=== PATIENT | female | born 1985 | race American Indian/Alaskan Native ===

== ENCOUNTER 2016-12-04 16:55 | Emergency (ER) | payer MEDICAID ==
[2016-12-04 17:11] VITALS: BMI 29.2
[2016-12-04 17:16] VITALS: RESP 18; TEMP 98; O2SAT 100
--- NOTE | 2016-12-04 17:49 | ED PDOC ---
Arrival/HPI - General Chief Complaint: Altered Mental Status Time Seen by Provider: 12/04/16 17:19 Historian: Patient - History of Present Illness Narrative History of Present Illness (Text): 12/04/16 17:43 31 year old female who denies past medical history presents to the emergency department with fatigue and intermittent nausea for the past few weeks. she says she feels sleepy more when she is at work. She denies any sleep disturbance. Patient reports LMP beginning of November. Denies fever, cough, diarrhea, dysuria, or other symptoms. Time/Duration: > week Symptom Onset: Gradual Symptom Course: Unchanged Associated Symptoms (Text): None Past Medical History - Provider Review Nursing Documentation Reviewed: Yes - Infectious Disease Hx of Infectious Diseases: None - Psychiatric Hx Substance Use: No Family/Social History - Physician Review Nursing Documentation Reviewed: Yes Family/Social History: Unknown Family HX Smoking Status: Never Smoked Hx Alcohol Use: No Hx Substance Use: No Allergies/Home Meds Allergies/Adverse Reactions: Allergies No Known Allergies Allergy (Verified 08/29/16 09:39) Review of Systems - Physician Review All systems were reviewed & negative as marked: Yes - Review of Systems Constitutional: Fatigue Gastrointestinal: Nausea Musculoskeletal: Arthralgias Physical Exam Vital Signs Reviewed: Yes Vital Signs Temp Pulse Resp BP Pulse Ox 12/04/16 18:39 64 18 121/71 100 12/04/16 17:15 98.0 F 62 18 119/70 100 Temperature: Afebrile Blood Pressure: Normal Pulse: Regular Respiratory Rate: Normal Appearance: Positive for: Well-Appearing, Non-Toxic, Comfortable Pain Distress: None Mental Status: Positive for: Alert and Oriented X 3 - Systems Exam Head: Present: Atraumatic, Normocephalic Pupils: Present: PERRL Extroacular Muscles: Present: EOMI Conjunctiva: Present: Normal Mouth: Present: Moist Mucous Membranes Neck: Present: Normal Range of Motion Respiratory/Chest: Present: Clear to Auscultation, Good Air Exchange. No: Respiratory Distress, Accessory Muscle Use Cardiovascular: Present: Regular Rate and Rhythm, Normal S1, S2. No: Murmurs Abdomen: Present: Normal Bowel Sounds. No: Tenderness, Distention, Peritoneal Signs Back: Present: Normal Inspection Upper Extremity: Present: Normal Inspection. No: Cyanosis, Edema Lower Extremity: Present: Normal Inspection. No: Edema Neurological: Present: GCS=15, CN II-XII Intact, Speech Normal, Motor Func Grossly Intact, Normal Sensory Function, Gait Normal Skin: Present: Warm, Dry. No: Rashes Psychiatric: Present: Alert, Oriented x 3 Medical Decision Making - Lab Interpretations Microbiology Results: Microbiology Results 12/04/16 17:45 Urine,Clean Catch Urine Culture - Final Gram Positive Cocci Lab Results: 12/04/16 18:08 12/04/16 18:08 Lab Results 12/04/16 18:08: Sodium 140, Potassium 4.2, Chloride 103, Carbon Dioxide 28, Anion Gap 13, BUN 11, Creatinine 0.7, Est GFR ( Amer) > 60, Est GFR (Non- Af Amer) > 60, Random Glucose 76, Calcium 9.6, Total Bilirubin 0.6, AST 33, ALT 34, Alkaline Phosphatase 78, Total Protein 7.8, Albumin 4.0, Globulin 3.8, Albumin/Globulin Ratio 1.1 12/04/16 18:08: WBC 5.4, RBC 4.86, Hgb 13.9, Hct 42.1, MCV 86.6, MCH 28.6, MCHC 33.0, RDW 13.5, Plt Count 245, MPV 11.0, Gran % 41.5 L, Lymph % (Auto) 45.6 H, [place] % (Auto) 9.1 H, Eos % (Auto) 3.4, Baso % (Auto) 0.4, Gran # 2.23, Lymph # 2.5, [place] # 0.5, Eos # 0.2, Baso # 0.02 12/04/16 17:45: Urine Color Yellow, Urine Appearance Clear, Urine pH 6.0, Ur Specific [place] >= 1.030, Urine Protein Negative, Urine Glucose (UA) Negative, Urine Ketones Negative, Urine Blood Negative, Urine Nitrate Negative, Urine Bilirubin Negative, Urine Urobilinogen 0.2, Ur Leukocyte Esterase Small H, Urine RBC Negative, Urine WBC 5 - 10, Ur Epithelial Cells 6 - 8, Urine Bacteria Few, Urine HCG, Qual Negative - Scribe Statement The provider has reviewed the documentation as recorded by the Jaziel Oh Provider Scribe Attestation: All medical record entries made by the Arisibbethany were at my direction and personally dictated by me. I have reviewed the chart and agree that the record accurately reflects my personal performance of the history, physical exam, medical decision making, and the department course for this patient. I have also personally directed, reviewed, and agree with the discharge instructions and disposition. Disposition/Present on Arrival - Present on Arrival Any Indicators Present on Arrival: No History of DVT/PE: No History of Uncontrolled Diabetes: No Urinary Catheter: No History of Decub. Ulcer: No History Surgical Site Infection Following: None - Disposition Have Diagnosis and Disposition been Completed?: Yes Diagnosis: Nausea, Fatigue Disposition: HOME/ ROUTINE Disposition Time: 19:22 Condition: STABLE Discharge Instructions (ExitCare): Diet for Ulcers and Gastritis (ED) Additional Instructions: Please follow up with your doctor on Wednesday. Return to the ER for any worsening symptoms or for any other concerns. Prescriptions: Famotidine [Pepcid] 20 mg PO DAILY #14 tab Ondansetron ODT [Zofran ODT] 4 mg PO Q4H PRN #10 odt PRN Reason: Nausea/Vomiting Referrals: Rosemary Tillman MD [Primary Care Provider] - Follow up with primary Forms: WORK NOTE
[2016-12-04 17:56] LABS: URINE BILIRUBIN NEGATIVE (NEGATIVE); URINE BLOOD NEGATIVE (NEGATIVE); URINE GLUCOSE (UA) NEGATIVE (NEGATIVE); URINE KETONE NEGATIVE (NEGATIVE); URINE LEUKOCYTE ESTERASE SMALL Leu/uL (NEGATIVE); URINE PROTEIN NEGATIVE mg/dL (<30 mg/dL); URINE UROBILINOGEN 0.2 E.U./dL (<1 E.U./dL)
[2016-12-04 18:05] LABS: URINE APPEARANCE CLEAR (CLEAR); URINE COLOR YELLOW (YELLOW)
[2016-12-04 18:15] LABS: ADD MANUAL DIFF? NO
[2016-12-04 18:18] LABS: URINE BACTERIA FEW (NEG); URINE RBC NEGATIVE /hpf (0-2)
[2016-12-04 18:23] LABS: BASO # 0.02 K/mm3 (0.0-2.0); BASO % 0.4 % (0.0-3.0); EOS # 0.2 (0.0-0.7); EOS % 3.4 % (1.5-5.0); GRAN # 2.23 (1.4-6.5); GRAN % 41.5 % (50.0-68.0); HEMATOCRIT 42.1 % (36.0-48.0); LYMPH # 2.5 (1.2-3.4); LYMPH % 45.6 % (22.0-35.0); MEAN CELL VOLUME 86.6 fL (80.0-105.0); MEAN CORPUSCULAR HEMOGLOBIN 28.6 pg (25.0-35.0); MONO # 0.5 (0.1-0.6); MONO % 9.1 % (1.0-6.0); PLATELET COUNT 245 10^3/uL (120.0-450.0); RED CELL DISTRIBUTION WIDTH 13.5 % (11.5-14.5); WHITE BLOOD COUNT 5.4 10^3/ul (4.5-11.0)
[2016-12-04 18:39] VITALS: BP 121/71; PULSE 64
[2016-12-04 18:54] LABS: ALB/GLOB RATIO 1.1 (1.1-1.8); ALKALINE PHOSPHATASE 78 U/L (38-133); ALT/SGPT 34 U/L (7-56); AST/SGOT 33 U/L (15-39); BILIRUBIN,TOTAL 0.6 mg/dL (0.2-1.3); BLOOD UREA NITROGEN 11 mg/dL (7-21); CALCIUM 9.6 mg/dL (8.4-10.5); CARBON DIOXIDE 28 mmol/L (21-33); CHLORIDE 103 mmol/L (98-107); GFR AFRICAN-AMERICAN > 60; GLUCOSE,RANDOM 76 mg/dL (70-110); POTASSIUM 4.2 mmol/L (3.6-5.0); SODIUM 140 mmol/L (132-148); TOTAL PROTEIN 7.8 g/dL (5.8-8.3)
== END 2016-12-04 19:22 | disposition home or self-care (01) ==
LOC: ED 16:55
DX: R53.83 Other fatigue (principal); R11.0 Nausea

== ENCOUNTER 2016-12-31 21:35 | Emergency (ER) | payer MEDICAID ==
[2016-12-31 21:59] VITALS: BMI 30.1
[2016-12-31 22:04] VITALS: BP 124/60; TEMP 98.4
--- NOTE | 2017-01-01 00:24 | ED PDOC ---
Arrival/HPI - General Chief Complaint: GI Problem Time Seen by Provider: 12/31/16 21:48 Historian: Patient - History of Present Illness Narrative History of Present Illness (Text): 01/01/17 00:20 31yr old female presents today requesting test. pt denies abdominal pain. no urinary symptoms. no vaginal bleeding. no vaginal discharge. pt states she thinks she may be because she missed her period in november. pt states she has been feeling very nauseous. no vomiting. no cp or sob. no other complaints. pt states she wouldnt have believed a home test so she came to the Er for confirmation. Symptom Onset: Gradual Symptom Course: Unchanged Past Medical History - Provider Review Nursing Documentation Reviewed: Yes - Travel History Have you recently traveled outside [place] w/in the past 3 mons?: No - Infectious Disease Hx of Infectious Diseases: None - Psychiatric Hx Substance Use: No Family/Social History - Physician Review Nursing Documentation Reviewed: Yes Family/Social History: Unknown Family HX Smoking Status: Never Smoked Hx Alcohol Use: No Hx Substance Use: No Allergies/Home Meds Allergies/Adverse Reactions: Allergies No Known Allergies Allergy (Verified 08/29/16 09:39) Review of Systems - Review of Systems Constitutional: absent: Fevers ENT: absent: Sore Throat, Sinus Congestion Respiratory: absent: SOB, Cough Cardiovascular: absent: Chest Pain, Palpitations Gastrointestinal: Nausea. absent: Abdominal Pain, Constipation, Diarrhea, Vomiting Genitourinary Female: absent: Dysuria, Frequency, Hematuria, Vaginal Bleeding, Vaginal Discharge Musculoskeletal: absent: Arthralgias, Back Pain, Neck Pain Skin: absent: Rash, Pruritis Neurological: absent: Headache, Dizziness Psychiatric: absent: Anxiety, Depression Physical Exam Vital Signs Reviewed: Yes Vital Signs Temp Pulse Resp BP Pulse Ox 12/31/16 21:59 98.4 F 73 18 124/60 98 Temperature: Afebrile Blood Pressure: Normal Pulse: Regular Respiratory Rate: Normal Appearance: Positive for: Well-Appearing, Non-Toxic, Comfortable Pain Distress: None Mental Status: Positive for: Alert and Oriented X 3 - Systems Exam Head: Present: Atraumatic Mouth: Present: Moist Mucous Membranes Neck: Present: Normal Range of Motion Respiratory/Chest: Present: Clear to Auscultation, Good Air Exchange. No: Respiratory Distress, Accessory Muscle Use Cardiovascular: Present: Regular Rate and Rhythm, Normal S1, S2. No: Murmurs Abdomen: No: Tenderness, Distention, Peritoneal Signs, Rebound, Guarding Upper Extremity: Present: Normal ROM Lower Extremity: Present: Normal ROM Neurological: Present: GCS=15 Skin: Present: Warm, Dry, Normal Color. No: Rashes Psychiatric: Present: Alert, Oriented x 3 Medical Decision Making ED Course and Treatment: 01/01/17 00:23 She was nontoxic well-appearing no distress with stable vital signs Urine test positive 2 Abdomen is soft nontender nondistended. I have advised follow-up with the combat systems operator [facility] within the next 2 days. I've advised her to vitamins. I've advised me to return if symptoms worsen or persist or if new concerning symptoms develop Patient verbalizes understanding of discharge instructions and need for immediate followup. Impression: Positive test Increase fluids vitamins daily Follow-up with combat systems [facility] [employer] within the next 2 days Return immediately if symptoms worsen or persist or if new concerning symptoms develop Disposition/Present on Arrival - Present on Arrival Any Indicators Present on Arrival: No History of DVT/PE: No History of Uncontrolled Diabetes: No Urinary Catheter: No History of Decub. Ulcer: No History Surgical Site Infection Following: None - Disposition Have Diagnosis and Disposition been Completed?: Yes Diagnosis: Positive test Disposition Time: 00:24 Patient Plan: Discharge Condition: GOOD Additional Instructions: Increase fluids vitamins daily Follow-up with [facility] systems [facility] [employer] within the next 2 days Return immediately if symptoms worsen or persist or if new concerning symptoms develop Prescriptions: Multivit/Folic Acid/I [ Plus] 1 tab PO DAILY #30 tab Referrals: Odessa Dickey MD [Staff Provider] - [facility] - Follow up with primary Forms: WORK NOTE
[2017-01-01 00:38] VITALS: RESP 16
[2017-01-01 01:44] VITALS: PULSE 88; O2SAT 98
== END 2017-01-01 01:44 | disposition home or self-care (01) ==
LOC: ED 21:35
DX: Z32.01 Encounter for pregnancy test, result positive (principal)

== ENCOUNTER 2017-11-05 16:46 | Emergency (ER) | payer MEDICAID ==
[2017-11-05 16:47] VITALS: BMI 30.1
[2017-11-05 16:52] VITALS: BP 112/72; PULSE 85; RESP 18; TEMP 97.9; O2SAT 99
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
== END 2017-11-05 18:49 | disposition home or self-care (01) ==
LOC: ED 16:46
DX: M79.641 Pain in right hand (principal)